=== PATIENT | female | born 1960 | race Caucasian/White ===

== ENCOUNTER 2016-07-27 19:31 | Inpatient (IN) | payer OTHER ==
[~2016-07-27] VITALS: Ht 170.2 cm; Wt 66.2 kg
--- NOTE | 2016-07-27 19:31 | NUR ---
TO BED 4 [facility] PARAMEDICS C/O POSSIBLE OVERDOSE OF UNKNOWN MEDS. RECEIVED PT UNRESPONSIVE, AGONAL BREATHING WITH A RESPIRATORY RATE OF 6 BREATHS PER MIN, NO RESPONSE TO PAINFUL STIMULI, PUPILS PINPOINT. SKIN COOL, DIAPHORETIC. ER MD AT BEDSIDE TO EVAL PT WITH ORDER TO PREP PT FOR INTUBATION. RT PAGED. SL 18G TO L AC POT FILLER. STARTED SL 16G TO R AC, BLOOD DRAWN AND SENT TO LAB. Addendum: 07/27/16 at [address] PT ON CARDIAC MONITORING, CONTINUOUS POX, O2@15L/NONREBREATHER MASK.
--- NOTE | 2016-07-27 19:33 | NUR ---
ER , RT MARIAA, RN SARAH, EMT AMAURY, AND MYSELF AT BEDSIDE FOR INTUBATION.
--- NOTE | 2016-07-27 19:35 | NUR ---
PT INTUBATED BY DR. ORTA, ET-TUBE 7.5FR, 23CM AT THE LIP LINE, (+) COLOR CHANGE ON THE CO2 DETECTOR WITH BILATERAL EQUAL BREATH SOUNDS. WILL CONTINUE TO MONITOR PT CLOSELY.
[2016-07-27] MEDS ORDERED: BUTA-262 PO (19:44)
[2016-07-27] MEDS ORDERED: ASPI81TA2 PO (19:44)
[2016-07-27] MEDS ORDERED: DIAZ5TAB4 PO (19:44)
[2016-07-27] MEDS ORDERED: SUMA100T PO (19:44)
[2016-07-27] MEDS ORDERED: CARI350T PO (19:44)
[2016-07-27] MEDS ORDERED: CYCL-343 PO (19:44)
[2016-07-27] MEDS ORDERED: NAPR250T2 PO (19:44)
--- NOTE | 2016-07-27 19:48 | NUR ---
CALLED NURSING SUP. FOR ICU BED
--- NOTE | 2016-07-27 19:50 | NUR ---
F/C 16FR INSERTED, NOTED CLEAR YELLOW URINE. URINE SAMPLE COLLECTED AND SENT TO LAB.
[2016-07-27 19:52] VITALS: BP 150/101
[2016-07-27] MEDS ORDERED: PROPOFOL 100 ML IV ONE (19:54)
[2016-07-27] MEDS ORDERED: IV SET PRIMARY 1 EA INFUS.SET MC ONE (19:54)
[2016-07-27] MEDS ORDERED: IV NS 0.9% 1,000 ML ONE ×2 (19:54→22:40)
[2016-07-27] MEDS ORDERED: IV SET PRIMARY PUMP SET 1 EA INFUS.SET MC ONE ×2 (19:54→22:41)
[2016-07-27 19:55] LABS: BASOPHILS # (AUTO) 0.1 /CMM (0.0-0.2); BASOPHILS % (AUTO) 0.8 % (0.0-2.0); EOSINOPHILS # (AUTO) 0.1 /CMM (0.0-0.7); EOSINOPHILS % (AUTO) 1.6 % (0.0-6.0); HEMATOCRIT 35 % (33-45); HEMOGLOBIN 11.7 g/dL (11.5-14.8); LYMPHOCYTES # (AUTO) 4.4 /CMM (0.8-4.8); MEAN CORPUSCULAR HEMOGLOBIN 31 PG (26.0-33.0); MEAN CORPUSCULAR HGB CONC 34 g/dl (31.0-36.0); MEAN CORPUSCULAR VOLUME 92 fL (82-100); MONOCYTES # (AUTO) 0.5 /CMM (0.1-1.30); MONOCYTES % (AUTO) 6.4 % (2.0-12.0); NEUTROPHILS # (AUTO) 3.1 /CMM (1.8-8.9); NEUTROPHILS % (AUTO) 38.2 % (43.0-81.0); PLATELET COUNT (AUTO) 183 /CMM (150-450); RDW COEFFICIENT OF VARIATION 12.9 (11.5-15.0); RED BLOOD CELL COUNT(AUTO) 3.77 MIL/uL (4.0-5.2); WHITE BLOOD COUNT (AUTO) 8.2 K/uL (4.3-11.0)
--- NOTE | 2016-07-27 19:56 | NUR ---
PT REC'D UNRESPONSIVE AND VENTILATED VIA AMBU BAG. PT INTUBATED 1934. ETT SZ 7.5, 21 @ [facility]. [facility] VENT STARTED WITH CHARTED SETTINGS PER MD ORDER @ 194. NET TECHNICAL ARCHITECT CUFF PRESSURE NOTED AND BILATERAL CHEST RISE NOTED. ALARMS ARE SET AND AUDIBLE. VENT PLUGGED INTO RED OUTLET. WILL CONTINUE TO MONITOR. Addendum: 07/27/16 at 2001 by ROYA SHEFFIELD RT Amended: Links added.
[2016-07-27 19:59] LABS: CALCIUM, SERUM 8.4 mg/dL (8.5-10.1); CARBON DIOXIDE 30 mmol/L (21-32); CHLORIDE 109 mmol/L (98-107); CREATININE 0.8 mg/dL (0.6-1.3); GFR 74 mL/min (>60); GLUCOSE 102 mg/dL (74-106); POTASSIUM 4.6 mmol/L (3.5-5.1); SODIUM SERUM 144 mmol/L (136-145); UREA NITROGEN, BLOOD 19 mg/dL (7-18)
[2016-07-27] MEDS ORDERED: IV NS 0.9% 1,000 ML BAG IV ONE (20:00)
[2016-07-27] MEDS ORDERED: SUCCINYLCHOLINE CHLORIDE 20 MG/ML VIAL IV ONE (20:00)
[2016-07-27] MEDS ORDERED: PROPOFOL 100 ML IV PRN (20:00)
[2016-07-27 20:01] LABS: PROTHROMBIN TIME 10.4 SECS (9.5-12.7)
--- NOTE | 2016-07-27 20:02 | NUR ---
ER MD AT BEDSIDE TALKING TO PT REGARDING PT CONDITION.
[2016-07-27 20:04] LABS: ALANINE AMINOTRANSFERASE 12 U/L (12-78); ALBUMIN 3.3 g/dL (3.4-5.0); ALCOHOL, BLOOD < 3 mg/dL (0-0); ALKALINE PHOSPHATASE 60 U/L (46-116); ASPARTATE AMINOTRANSFERASE 13 U/L (15-37); BILIRUBIN,TOTAL 0.2 mg/dL (0.2-1.0); TOTAL PROTEIN, SERUM 6.1 g/dL (6.4-8.2)
[2016-07-27 20:05] LABS: ACETAMINOPHEN < 2 ug/ml (10-30); SALICYLATE < 2.8 mg/dL (2.8-20.0)
[2016-07-27 20:07] LABS: TROPONIN I < 0.017 ng/mL (0.00-0.056)
--- NOTE | 2016-07-27 20:08 | NUR ---
PT TRANSPORTED TO RADIOLOGY FOR CT HEAD VIA ACLS PROTOCOL WITH RN SARAH, EMT AMAURY, AND RT AT BEDSIDE.
[2016-07-27 20:12] LABS: SERUM AMMONIA 15 umol/L (11-32)
[2016-07-27 20:22] LABS: APPEARANCE,URINE Clear (CLEAR); BILIRUBIN,URINE Negative (NEGATIVE); BLOOD, URINE Negative Ery/uL (NEGATIVE); COLOR,URINE Yellow (YELLOW); KETONES,URINE 15 (NEGATIVE); LEUKOCYTE ESTERASE ,URINE Negative (NEGATIVE); NITRITE, URINE Negative (NEGATIVE); PH,URINE 5.5 (5.0-8.0); PROTEIN,URINE Negative (NEGATIVE); UGLUCOSE Negative (NEGATIVE); UROBILINOGEN,URINE 0.2 EU/dL (0.2)
--- NOTE | 2016-07-27 20:24 | NUR ---
REPORT CALLED TO SAUSAGE MIXERMAGGIE WOOD. PENDING HOSPITAL ADMISSION.
--- NOTE | 2016-07-27 20:29 | NUR ---
PT BACK FROM [facility]. PENDING CT HEAD RESULT.
[2016-07-27 20:30] LABS: CANNABINOID, URINE NEGATIVE (NEGATIVE); PHENCYCLIDINE SCREEN,URINE NEGATIVE (NEGATIVE)
[2016-07-27 20:39] LABS: ADD URINE CULTURE NO; BACTERIA,URINE None seen /HPF (None Seen); MUCUS,URINE Many /LPF (None Seen); RBC,URINE 0-2 /HPF (0-2); SQUAMOUS EPITHELIAL CELL,UR Few /HPF (None Seen)
[2016-07-27 20:42] LABS: ABG BASE EXCESS -2.7 mmol/L; ABG PCO2 43.1 mmHg (35.0-45.0); ABG PH 7.344 (7.350-7.450); ABG PO2 304.9 mmHg (75.0-100.0); ABG TOTAL HEMOGLOBIN 12.5 G/dL (12.0-16.0); AaDO2 75.5 mmHg; COHb 0.9 % (0.5-1.5); MetHb 0.2 % (0.0-1.5); O2Hb 97.9 % (94.0-97.0); SITE, ABG Right Radial; VENT MODE, BG AC 16 450 60% +5
--- NOTE | 2016-07-27 21:28 | NUR ---
PT FAMILY MEMBERS REMAINS AT BEDSIDE.
--- NOTE | 2016-07-27 21:32 | NUR ---
ER SPOKE TO DR. MILTON REGARDING PT ADMISSION.
--- NOTE | 2016-07-27 21:43 | NUR ---
REPORT UPDATED TO PHARMACY INTAKE TECHNICIANMAGGIE WOOD. WILL TRNASPORT PT VIA ACLS PROTOCOL.
--- NOTE | 2016-07-27 21:53 | NUR ---
ER MD AT BEDSIDE TALKING TO PT FAMILY MEMBERS REGARDING PT CONDITION AND HOSPITAL ADMISSION.
[2016-07-27] MEDS ORDERED: Z GUARD REMEDY 2 OZ OINT TP PRN (22:00)
[2016-07-27] MEDS ORDERED: ZOLPIDEM TARTRATE 5 MG TABLET PO PRN (22:00)
[2016-07-27] MEDS ORDERED: ACETAMINOPHEN 325 MG TABLET PO PRN (22:00)
[2016-07-27] MEDS ORDERED: ONDANSETRON HCL/PF 4 MG/2 ML VIAL IVP PRN (22:00)
--- NOTE | 2016-07-27 22:02 | NUR ---
PT TRANSPORTED TO ICU VIA ACLS PROTOCOL.
[2016-07-27 22:15] VITALS: BP 121/68
[2016-07-27] MEDS ORDERED: PANTOPRAZOLE 40 MG VIAL ONE (22:40)
[2016-07-27] MEDS ORDERED: ENOXAPARIN SODIUM 40 MG/0.4 ML DISP.SYRIN SQ ONE (22:40)
[2016-07-27 22:43] VITALS: BP 105/60
--- NOTE | 2016-07-27 22:49 | NUR ---
ORACLE AGILE PLM CONSULTANT. ADMISSION. RECEIVED THE PT FROM ER VIA GURNEY. ORALLY INTUBATED. PT IS UN RESPOND NO PAIN FULL STIMULI. KARIN SOFT WRIST RESTRAINT RESTRAINT. CHECKED AND RELEASED. NO INJURY OR REDNESS NOTED. IV RT AC 16G. IVF NS 125ML/H. AFEBRILE. HOB ELEVATED. NPO. FC PATENT. URINE DRAINING. WILL CONTINUE TO MONITOR VITALS.
[2016-07-27 23:00] VITALS: BP 122/78
[2016-07-27] MEDS: IV NS 0.9% 1,000 ML IV PRN (23:00)
[2016-07-27 23:30] VITALS: BP 126/76
[2016-07-27 23:35] VITALS: BP 126/76
--- NOTE | 2016-07-27 23:40 | NUR ---
RT PT RECEIVED INTUBATED ON [facility] VENT WITH A 7.5 ETT @ 21CM. VENT SETTING NOTED PER MD ORDERS. PT TOLERATING SETTING WELL. NO SOB OR RESP DISTRESS NOTED. AMBU BAG AT [facility]. VENT PLUGGED IN TO RED OUTLET. ETT PATENT AND SECURE VIA ETT LANDRY. WILL CONTINUE TO MONITOR. Addendum: 07/27/16 at 2342 by MARIAA LUIS RT Amended: Links added.
[2016-07-27] MEDS: PANTOPRAZOLE 40 MG VIAL IV SCH (23:42)
[2016-07-27] MEDS: ENOXAPARIN SODIUM 40 MG/0.4 ML DISP.SYRIN SQ SCH (23:43)
[2016-07-28] VITALS (29 sets, daily range): BP systolic 108–140; BP diastolic 63–88
--- NOTE | 2016-07-28 02:45 | NUR ---
PST SUPERVISOR. AM CARE. ORAL CARE, BED BATH GIVEN. LINEN CHANGED. REMAINING SAME VENT SETTING TOLERATED WELL. SAT 98%. NO ACUTE DISTRESS NOTED. [employer] PIPE MANUFACTURING SUPERVISOR SHOWING NSR. IV RT HAND 16G. IVF NS 125 ML/H.PT NOT RESPONDING PAIN. NO NEW CHANGES. NPO. HOB ELEVATED. FC PATENT. URINE DRAINING. AFEBRILE. WILL CONTINUE TO MONITOR VITALS.
[2016-07-28 04:53] LABS: HEMATOCRIT 33 % (33-45); HEMOGLOBIN 10.6 g/dL (11.5-14.8); LYMPHOCYTES # (AUTO) 0.9 /CMM (0.8-4.8); MEAN CORPUSCULAR HEMOGLOBIN 30 PG (26.0-33.0); MEAN CORPUSCULAR HGB CONC 32 g/dl (31.0-36.0); MEAN CORPUSCULAR VOLUME 92 fL (82-100); MONOCYTES # (AUTO) 0.5 /CMM (0.1-1.30); MONOCYTES % (AUTO) 4.2 % (2.0-12.0); NEUTROPHILS # (AUTO) 9.9 /CMM (1.8-8.9); NEUTROPHILS % (AUTO) 87.8 % (43.0-81.0); PLATELET COUNT (AUTO) 178 /CMM (150-450); RDW COEFFICIENT OF VARIATION 13.9 (11.5-15.0); RED BLOOD CELL COUNT(AUTO) 3.56 MIL/uL (4.0-5.2); WHITE BLOOD COUNT (AUTO) 11.2 K/uL (4.3-11.0)
[2016-07-28 05:21] LABS: BILIRUBIN,TOTAL 0.2 mg/dL (0.2-1.0); CREATININE 0.7 mg/dL (0.6-1.3); MAGNESIUM 1.5 mg/dL (1.8-2.4); POTASSIUM 4.1 mmol/L (3.5-5.1); TOTAL PROTEIN, SERUM 5.7 g/dL (6.4-8.2)
[2016-07-28 05:23] LABS: THYROID STIMULATING HORMONE 0.92 uIU/mL (0.358-3.74)
[2016-07-28] MEDS ORDERED: IV NS 0.9% 1,000 ML ONE (05:55)
[2016-07-28] MEDS: IV NS 0.9% 1,000 ML IV PRN ×2 (06:00→16:01)
--- NOTE | 2016-07-28 07:15 | NUR ---
RN INITIAL NOTES PT IN BED, UNRESPONSIVE TO VOICE, HAS COUGH REFLEX WHEN SUCTIONED, TRIES TO MOVE PRIMARILY RIGHT ARM; HAS BILATERAL SOFT WRIST RESTRAINT WITH TWO FINGER SPACE, GOOD CIRCULATION. ETT 7.5/23, AC 16, TV 450, FIO2 30%, PEEP 5, TOLERATING WELL, NO SIGNS OF DISTRESS NOTED. ON TELE MONITOR WITH SR 83. PT HAS JACOB CATH DRAINING CLEAR YELLOW URINE. IV ON RAC 16G, LAC 18G RUNNING NS @ 125 CC/HR, TOLERATING WELL, NO SIGNS OF INFECTION/INFILTRATION. PT HAS RIGHT NARE NGT CLAMPED, NO RESIDUAL. PT IS NPO. SKIN IS CDI. CALL LIGHT WITHIN EASY REACH, SAFETY MEASURES MAINTAINED, WILL CONTINUE TO MONITOR AND FOLLOW MD ORDERS. PRIMARY FOR TODAY IS LINNETTE YANEZ NP.
[2016-07-28] MEDS ORDERED: PROPOFOL 100 ML IV PRN (08:00)
[2016-07-28] MEDS: PANTOPRAZOLE 40 MG VIAL IV SCH (08:08)
[2016-07-28] MEDS ORDERED: DC PROPOFOL WHEN EXTUBATED XX PRN (09:00)
--- NOTE | 2016-07-28 10:40 | NUR ---
RN NOTES PT IS MORE ALERT, ASKING FOR WATER, ABLE TO MOVE ALL EXTREMITIES, STATES SHE IS STILL SLEEPY AND TIRED. REORIENTED HER AND EXPLAINED TO HER WHY SHE HAS RESTRAINTS ON. SPOKE WITH DR. COFFMAN, STATES HE WILL COME TO SEE HER AND POSSIBLY EXTUBATE IF NECESSARY.
--- NOTE | 2016-07-28 10:40 | NUR ---
pt extubated post weaning trial. md at bedside. pt juan manuel. extubation well b/s equal pt able to phonate. on 2lpm n/c. Addendum: 07/28/16 at 1239 by ALVARO COBB RT time extubated 1140
--- NOTE | 2016-07-28 10:48 | NUR ---
RN NOTES PT SEEN BY DR. COFFMAN, ORDER GIVEN TO WEAN PT, SIMV 4, PEEP 5, AND PRESSURE SUPPORT 12, AND ABG IN 30 MINS. Addendum: 07/28/16 at 1058 by DARSHANA RYAN RN PRESSURE SUPPORT CHANGED TO 10 INSTEAD OF 12, DR. COFFMAN AWARE.
[2016-07-28] MEDS ORDERED: SECONDARY IV SET 1 EA INFUS.SET MC ONE (10:58)
[2016-07-28] MEDS: Magnesium 1GM/D5W 100ML PREMIX 100 ML IV SCH ×2 (11:06→12:25)
[2016-07-28 11:31] LABS: ABG BASE EXCESS -1.9 mmol/L; ABG OXYGEN SATURATION 96.8 % (92.0-98.5); ABG PCO2 41.3 mmHg (35.0-45.0); ABG PH 7.369 (7.350-7.450); ABG TOTAL HEMOGLOBIN 10.8 G/dL (12.0-16.0); AaDO2 46.4 mmHg; COHb 0.4 % (0.5-1.5); MetHb 0.7 % (0.0-1.5); O2Hb 95.7 % (94.0-97.0); PEEP,BG 5 cm H2O; SITE, ABG Right Radial; VENT MODE, BG SIMV 4 PSV 10; VT, ABG 450 mL
--- NOTE | 2016-07-28 11:42 | NUR ---
RN NOTES PT EXTUBATED, TOLERATING WELL, ABLE TO SAY "HELVIRIDIANA". WILL CONTINUE TO MONITOR. Addendum: 07/28/16 at 1143 by DARSHANA RYAN RN PT ON NC 2L
--- NOTE | 2016-07-28 12:13 | NUR ---
RN NOTES FAMILY AT BEDSIDE, PT IS ABLE TO TOLERATE ICE CHIPS, PT IS STILL GROGGY. PT SEEN BY DR. FLORES.
--- NOTE | 2016-07-28 13:22 | NUR ---
RN NOTES PT SEEN BY LINNETTE YANEZ NP, ORDER GIVEN TO REMOVED NGT AND START ON CLEAR LIQUID DIET WHEN PT BECOMES MORE ALERT. PT VERBALIZED SHE WANTS TO KILL HERSELF; 1:1 SITTER NEEDED. OVERALL, PT IS STABLE.
--- NOTE | 2016-07-28 15:33 | NUR ---
RN NOTES REMOVED NGT AND ORDERED CLEAR LIQUID DIET PER LINNETTE YANEZ NP. PT IS ABLE TO EAT ICE CHIPS AND DRINK WATER WITH NO COUGH OR DIFFICULTY. PT IN STABLE CONDITION.
[2016-07-28] MEDS: QUETIAPINE FUMARATE 25 MG TABLET PO SCH (16:01)
--- NOTE | 2016-07-28 19:19 | NUR ---
RN NOTES PT IN STABLE CONDITION, ALL MD ORDERS CARRIED OUT, IV'S CDI, NO SIGNS OF INFECTION/INFILTRATION, TOLERATING NC 2L WELL. 1:1 SITTER AT BEDSIDE. CALL LIGHT WITHIN EASY REACH, SAFETY MEASURES MAINTAINED, REPORT GIVEN TO NIGHT NURSE FOR HEIDY. Addendum: 07/28/16 at 1919 by DARSHANA RYAN RN F/C INGRID WELL.
--- NOTE | 2016-07-28 19:39 | NUR ---
agricultural technician. initial assessment. received the pt rest on the bed. awake, alert, follow commands. financial supervisor showing nsr, oxygen 2l via nasal cannula. sat 98%.iv rt hand 16g. ivf ns 125ml/h. hob elevated.fc patent. afebrile. sitter at bed side. pt not medically cleared. will continue to monitor vitals.
[2016-07-28] MEDS: ENOXAPARIN SODIUM 40 MG/0.4 ML DISP.SYRIN SQ SCH (22:27)
[2016-07-29] VITALS (16 sets, daily range): BP systolic 97–127; BP diastolic 27–76
[2016-07-29] MEDS: HYDROCODONE/APAP 5/325MG 1 EACH TABLET PO PRN ×4 (00:59→20:29)
--- NOTE | 2016-07-29 02:55 | NUR ---
ASSISTANT SALES CENTER MANAGER.AM CARE. ORAL CARE, BED BATH GIVEN. LINEN CHANGED. REMAININH SAME OXYGEN 2L VIA NASAL CANNULA. SAT 98^, TOLERATED WELL.FUNERAL PRE NEED CONSULTANT SHOWING NSR, IV RT HAND. IVF NS 125ML/H. FC PATENT. URINE DRAINING. TURN AND REPOSITION PT INDEP.WILL CONTINUE TO MONITOR VITALS.
[2016-07-29 04:59] LABS: CALCIUM, SERUM 7.9 mg/dL (8.5-10.1); CREATININE 0.6 mg/dL (0.6-1.3); MAGNESIUM 1.7 mg/dL (1.8-2.4); POTASSIUM 3.5 mmol/L (3.5-5.1)
[2016-07-29] MEDS: IV NS 0.9% 1,000 ML IV PRN ×2 (05:26→21:12)
[2016-07-29] MEDS: QUETIAPINE FUMARATE 25 MG TABLET PO SCH ×2 (08:02→17:19)
[2016-07-29] MEDS: PANTOPRAZOLE 40 MG VIAL IV SCH (08:02)
[2016-07-29] MEDS ORDERED: SECONDARY IV SET 1 EA INFUS.SET MC ONE (10:24)
[2016-07-29] MEDS: Magnesium 1GM/D5W 100ML PREMIX 100 ML IV SCH ×2 (10:29→11:24)
[2016-07-29] MEDS: VENLAFAXINE XR 37.5 MG CAP.SR.24H PO SCH (11:24)
--- NOTE | 2016-07-29 13:43 | NUR ---
METAL WIRE TECHNICIAN NOTE 0720: Received patient resting comfortably, A/Ox4. With 2LPM of O2 via NC tolerated well. With PIVs intact, on IVF infusing as ordered. With johnston cath intact, noted with clear yellow uri9ne drained to BSD. Verbalized feeling depressed still, no suicidal ideation at this time. With 1:1 sitter at bedside. 0930: S/E by Dr. Watt, with new order of Effexor and additional Seroquel. 1030: S/E by Dr. Wakefield, 99% on 2LPM, placed patient on room air. 1210: S/E by Gomez SHEET ROCK NAILER, with order for PET team, CN called PET. Patient tolerated Pureed diet but said not ready yet for solid food, will keep on Pureed diet at this time. 1315: S/E by Gogo from PET, will continue to monitor patient.
--- NOTE | 2016-07-29 14:55 | NUR ---
DERMATOLOGY PROCEDURAL PHYSICIAN NOTE Transferred patient via bed to MS 2. Patient A/Ox4, aware for the POC. Report given to Brennon RN for HEIDY. Endorsed to keep monitor for suicidal ideation and depression and if wanted to go AMA, to call PET team. With PIVs intact, IVF infusing as ordered. Tolerated room air.
--- NOTE | 2016-07-29 15:50 | NUR ---
MS RN NOTE Received patient from ICU as accompanied by staff and friend @ 1500. Patient A/O X4 verbally responsive. Denies any pain or discomfort at this time. Resp even and non-labored. Skin warm and dry to touch. IV sites on LAC & RAC intact and patent, continue on Mg IV as ordered. Patient denies any SI/HI at this time. 1:1 sitter @ pt's side. V/S BP123/73 T98.1 P80 R20 O2 sat 97% at RA. Bed in low locked position. Body check done, skin intact. Will continue to monitor.
--- NOTE | 2016-07-29 17:00 | NUR ---
RA RN NOTE F/C removed as per Anil SERRANO (ICU) as ordered by Gomez ANN.
--- NOTE | 2016-07-29 18:27 | NUR ---
AM RN NOTE Patient awake, A/O X4 verbally responsive. No acute distress noted. Calm and co-operative at this time. 1:1 sitter @ side. IV sites intact and patent. Pt voided x1 without any difficulty. Will endorse care to next shift.
--- NOTE | 2016-07-29 19:20 | NUR ---
RN NOTE; RECEIVED PT IN BED AWAKE AND ALERT. BREATHING EVENLY. NO SOB. NO DISTRESS. NO VERBALIZATION OF SADNESS OR SUICIDE. ON ONGOING IVF HYDRATION SWATI WELL. NEEDS ATTENDED .ASSISTED W/ ADLS. CALL LIGHT WITHIN REACH. WILL CONT TO MONITOR .
--- NOTE | 2016-07-29 20:32 | NUR ---
NORCO 5 GIVEN ORDERED PER PT'S REQUEST FO C/O H/A AND L HIP PAIN. ASSESSED PT FOR L HIP PAIN. ABLE TO MOVE, BEND AND EXTEND THE LEG . NO BRUISES NOTED. NO SWELLING . ABLE TO AMBULATE TO THE BATHROOM EARLIER. WILL CONT TO MONITOR FOR ANY CHANGES, Addendum: 07/29/16 at 2036 by FELIPE HUERTA RN PT REPORTED NO RECENT FALL OR INJURY TO THE L HIP/ LEG.
[2016-07-29] MEDS: ENOXAPARIN SODIUM 40 MG/0.4 ML DISP.SYRIN SQ SCH (21:09)
[2016-07-29] MEDS ORDERED: QUETIAPINE FUMARATE 25 MG TABLET PO SCH (22:00)
[2016-07-30] MEDS: IV NS 0.9% 1,000 ML IV PRN (05:36)
--- NOTE | 2016-07-30 07:14 | NUR ---
RN NOTE; PT IN BED SLEEPING , AROUSES EASILY. NO SUICIDAL IDEATION AND VERBALIZATION . NO ACUTE CHANGES DURING NIGHT . ENDORSED TO DAY SHIFT FOR HEIDY..
--- NOTE | 2016-07-30 07:30 | NUR ---
MS RN NOTES RECEIVED PT IN BED, A/0 X4. APPEARS COMFORTABLE. NO VERBALIZATION OF SUICIDAL IDEATION, CALM AND RELAX IN BED. ENVIRONMENT NON CLUTTER, NO SHARP OBJECT AROUND. 1:1 SITTER AT THE BEDSIDE. CALL LIGHT WITHIN REACH. WILL CONT TO MONITOR.
[2016-07-30 08:00] VITALS: BP 157/71
[2016-07-30] MEDS: QUETIAPINE FUMARATE 25 MG TABLET PO SCH ×2 (08:09→17:12)
[2016-07-30] MEDS: VENLAFAXINE XR 37.5 MG CAP.SR.24H PO SCH (08:09)
[2016-07-30] MEDS: PANTOPRAZOLE 40 MG VIAL IV SCH (08:09)
--- NOTE | 2016-07-30 08:18 | NUR ---
C/O HEADACHE 05/18, NO DIZZINESS. GIVEN TYLENOL 650MG PO PRN, WILL REASSESS.
[2016-07-30] MEDS ORDERED: SECONDARY IV SET 1 EA INFUS.SET MC ONE (10:56)
[2016-07-30] MEDS: Magnesium 1GM/D5W 100ML PREMIX 100 ML IV SCH ×2 (11:01→12:00)
--- NOTE | 2016-07-30 12:09 | NUR ---
PATIENT IS SEEN BY DR. FLORES TODAY. ORDERED EKG TEST AFTER MAGNESIUM IV IS FINISHED. NOTED AND ACKNOWLEDGED.
--- NOTE | 2016-07-30 12:27 | NUR ---
PATIENT WAS POST EXTUBATE 07/28/16ND WAS PLACE ON PUREED DIET. PATIENT IS A/O X4, MORE AWAKE AND VERBALLY RESPONSIVE. TOLERATING DIET AND LIQUIDS WITHOUT DIFFICULTY, NO HX OF SWALLOWING DIFFICULTY. DIET CHANGED TO REGULAR ORDERED, NOTED AND ACKNOWLEDGED. DIETARY INFORMED.
--- NOTE | 2016-07-30 13:00 | NUR ---
PER DR. FLORES 5150 CRITERIA NO LONGER MET, INFORMED MAMI-CM, WILL SPEAK TO THE PATIENT.
--- NOTE | 2016-07-30 13:15 | NUR ---
PATIENT IS SEEN BY SIGRID TODAY, SPOKE TO THE PATIENT AND HE ALSO SPOKE TO DR. FLORES AND CHANDRA. PATIENT IS CLEARED BY DR. FLORES AND SIGRID TO GO HOME. PATIENT TO FOLLOW UP WITH [facility] WITHIN 5 DAYS UPON DISCHARGE HOSP.
--- NOTE | 2016-07-30 13:30 | NUR ---
STAT EKG RESULTED, REVIEWED BY SIGRID. PATIENT TO BE DISCHARGED HOME TODAY AFTER 5PM.
[2016-07-30] MEDS: HYDROCODONE/APAP 5/325MG 1 EACH TABLET PO PRN (14:51)
[2016-07-30 16:00] VITALS: BP_SYST 142; BP_SYST 157; BP_DIAS 61; BP_DIAS 70
--- NOTE | 2016-07-30 18:14 | NUR ---
PATIENT TO BE DISCHARGED HOME ORDERED, PATIENT IS AWARE.
--- NOTE | 2016-07-30 18:52 | NUR ---
MS RN CLOSING NOTES PATIENT IN BED, AWAKE, NOT DISTRESS. PATIENT IS AMBULATORY, SKIN INTACT. MAGNESIUM SUPPLEMENTED, NO C/O PAIN OR ANY DISCOMFORT. DISCHARGE INSTRUCTION GIVEN TO THE PATIENT, VERBALIZED UNDERSTANDING. PRESCRIPTION GIVEN TO THE PATIENT, INSTRUCTED PATIENT TO FOLLOW UP WITH [facility], STATED OK. BELONGINGS CHECKED BY THE RECORDS MANAGEMENT MANAGER. AWAITING FOR PATIENTS TO TAKE PATIENT HOME. WILL ENDORSE TO CASH CLERK RN FOR CONTINUITY OF CARE.
--- NOTE | 2016-07-30 19:20 | NUR ---
MS RN INITIAL NOTE PT IS AWAKE AND ALERT ORIENTED X4, NO COMPLAINT OF PAIN OR RESPIRATORY DISTRESS NOTED DURING PHYSICAL ASSESSMENT, PT IS STABLE AND COMFORTABLE, ORDER TO D/C RECEIVED, EXPECTED TIME OF ADMINISTRATIVE OFFICE SPECIALIST WAS 5PM BUT IS RUNNING LATE, CURRENTLY AWAITING FOR TO PICK HER UP, WILL CONTINUE TO MONITOR CLOSELY.
[2016-07-30 19:45] VITALS: BP 105/62
--- NOTE | 2016-07-30 19:48 | NUR ---
PT'S HAS ARRIVED, IV ACCESS D/C'D PT IS STABLE AND COMFORTABLE WITH NO COMPLAINT OF PAIN OR RESPIRATORY DISTRESS, D/C TEACHING PROVIDED TO PATIENT AND D/C PAPERWORK PROVIDED, ALL BELONGINGS WITH PT, PT WOULD LIKE TO WALK AND NOT BE TRANSPORTED VIA WHEELCHAIR, EXPLAINED TO PT X3 THAT FOR HER SAFETY IS RECOMMEND THAT SHE BE BROUGHT TO THE LOBBY VIA WHEELCHAIR AND ESCORTED BY NURSING STAFF, PT CONTINUES TO REFUSE, STEADY GATE NOTED AND IS AT HER SIDE. MD AND CHARGE NURSE MADE AWARE OF D/C.
== END 2016-07-30 19:55 | disposition home or self-care (01) | DRG 812 ==
LOC: ER 19:36 → ICU 20:49 → MEDSG2 07-29 14:50
PROVIDERS: ADMIT Internal Medicine; ATTEND Internal Medicine
PROC: 0BH17EZ Insertion of Endotracheal Airway into Trachea, Via Natural or Artificial Opening (ICD-10-PCS; principal; 2016-07-27)
PROC: 5A1935Z Respiratory Ventilation, Less than 24 Consecutive Hours (ICD-10-PCS; 2016-07-27)
DX: T42.4X2A Poisoning by benzodiazepines, intentional self-harm, initial encounter (principal); J96.01 Acute respiratory failure with hypoxia; G92 Toxic encephalopathy; E83.42 Hypomagnesemia; G43.909 Migraine, unspecified, not intractable, without status migrainosus; G89.29 Other chronic pain; F31.9 Bipolar disorder, unspecified; Z86.73 Personal history of transient ischemic attack (TIA), and cerebral infarction without residual deficits; Z87.891 Personal history of nicotine dependence; I45.81 Long QT syndrome; F10.21 Alcohol dependence, in remission; T42.8X2A Poisoning by antiparkinsonism drugs and other central muscle-tone depressants, intentional self-harm, initial encounter; Y92.009 Unspecified place in unspecified non-institutional (private) residence as the place of occurrence of the external cause; R82.6 Abnormal urine levels of substances chiefly nonmedicinal as to source
CPT/HCPCS: 31720; 36415; 36600; 70450-TC; 71010-TC; 80048-TC; 80053-TC; 80061-TC; 80076-TC; 80305; 81000-TC; 82140-TC; 83735-TC; 84100-TC; 84443-TC; 84484-TC; 85025-TC; 85730-TC; 87081-TC; 94002-TC; 94003-TC; 94799-TC; A4606; C9113; G0480; G6039-TC; J1650; J3475; J3490; J7030; Z7610